=== PATIENT | male | born 1990 | race Caucasian/White ===

== ENCOUNTER 2020-02-28 14:46 | Outpatient (REF) | payer MEDICAID, SELFPAY ==
[2020-03-03 14:55] LABS: Patient Race White; SARS-CoV-2 RNA Undetected (Undetected); SARS-CoV-2 Specimen Source Nasal
== END 2020-02-28 15:06 ==
LOC: NCHCN 14:46
PROVIDERS: PCP Internal Medicine; Visit Provider Family Medicine
DX: Z20.828 Contact with and (suspected) exposure to other viral communicable diseases (principal)
CPT/HCPCS: U0003

== ENCOUNTER 2020-10-10 16:47 | Outpatient (REF) | payer MEDICAID, SELFPAY ==
[2020-10-13 10:27] LABS: Lyme Ab w Rflx to Lyme Confirm Negative (Negative)
== END 2020-10-10 16:48 | disposition home or self-care (01) ==
LOC: NCHCN 16:47
PROVIDERS: PCP Internal Medicine; Visit Provider Family Medicine
DX: W57.XXXA Bitten or stung by nonvenomous insect and other nonvenomous arthropods, initial encounter (principal); T14.8XXA Other injury of unspecified body region, initial encounter
CPT/HCPCS: 86618